=== PATIENT | male | born 1950 | race Caucasian/White ===

== ENCOUNTER 2019-05-16 08:26 | Day surgery (SDC) | payer OTHER, SELFPAY ==
--- NOTE | 2019-05-16 | PATH_ITS ---
[facility] Accession Number: [id number] . 01 Material submitted: . PART A: colon - COLON POLYP 20 CM PART B: colon - POLYP AT ANAL VERGE . 01 Clinical history: . ENCOUNTER FOR SCREENING FOR MALIGNANT NEOPLASM . 02 Diagnosis: A. Colon, Polyp At 20 CM, Biopsy: Tubular adenoma. . B. Colon, Anal Verge Polyp, Biopsy: Hyperplastic polyp. [facility] 05/17/2019 1343 Local . 02 Electronically signed: . Mary Beth Alcala MD, Pathologist NPI- [id number] . 01 Gross description: . Part A: COLON POLYP 20 CM: Received in formalin are 3 fragment(s) of quinteros, soft tissue measuring 0.1 x 0.1 x 0.1 cm to 0.4 x 0.2 x 0.2 cm which is entirely submitted and submitted entirely in 1 cassette(s) Part B: POLYP AT ANAL VERGE: Received in formalin are 2 fragment(s) of quinteros, soft tissue measuring 0.2 x 0.2 x 0.2 cm to 0.3 x 0.3 x 0.2 cm which is entirely submitted and submitted entirely in 1 cassette(s) /[facility] [place] 05/16/2019 2017 Local . 02 Pathologist provided ICD-10: D12.6 . 02 CPT . 452406, [id number] Performed at: 01 [facility] [address] [place] [address], [place], [place] [id number] MD Jorje Hennessy MD Phone: [phone] Performed at: 02 [facility] [address] [place], [place] [id number] MD Mary Beth Alcala MD Phone: [phone]
[2019-05-16 08:47] VITALS: BP 151/94; PULSE 60; RESP 15; TEMP 36.2; O2SAT 97; BMI 28.8
[2019-05-16] MEDS: SODIUM CHLORIDE 0.9% 1,000 ML 200 ML IV (09:09)
--- NOTE | 2019-05-16 09:31 | PM.HP.1 ---
History of Present Illness History of Present Illness Date Patient Seen: 05/16/19 Time Patient Seen: 09:31 Chief complaint: [id number] Narrative: The patient is gentleman here for a screening colonoscopy. Last exam was almost 10 years ago. No family history of colon cancer. Patient History Medical History Atrial fibrillation (Chronic) Pacemaker (Chronic) Surgical History (Updated 05/16/19 @ 09:33 by Yohan Harrison MD) H/O cardiac radiofrequency ablation (Acute) Hx of hernia repair (Resolved) Family History Mother Cancer Grandmother Cancer Social History marital status: household members: spouse occupational status: previously employed Smoking Status: Never smoker alcohol intake: current Family & Social History Social History: household members spouse Tobacco & Substance use: Smoking Status Never smoker alcohol intake current Meds Home Medications and Allergies Home Medications Medication Instructions Recorded Confirmed Type citalopram [Celexa] #0 07/03/12 01/04/19 History warfarin [Coumadin] #0 07/03/12 01/04/19 History Lipitor 05/16/19 History Allergies Allergy/AdvReac Type Severity Reaction Status Date / Time No Known Drug Allergies Allergy Verified 05/16/19 08:39 Review of Systems Review of Systems ROS Unobtainable: All systems reviewed & are unremarkable except as noted in HPI and below Cardiovascular Comments: Patient had a pacemaker when he was 1st diagnosed with AFib. He was then ablated because medication was not controlling his AFib. He is now cardiac pacemaker dependent. He however is in sinus rhythm apparently. Exam Vital Signs (past 8 hours): - 05/16/19 08:47 Temperature 97.1 F L Pulse Rate 60 Respiratory Rate 15 Blood Pressure 151/94 H Pulse Oximetry 97 Oxygen Delivery Method Room Air Narrative Exam Narrative: Pleasant cooperative patient no apparent distress. Lungs are clear to auscultation. No rales or rhonchi. Heart regular rate and rhythm no murmur gallop. Abdomen is soft nontender without mass. No obvious hernias. Patient is alert and oriented x3. Assessment & Plan Assessment & Plan narrative: The patient for a screening colonoscopy. I have discussed the procedure with them. Risks of bleeding, perforation which would necessitate major operation, failure to find remove all lesions, the potential tattoo were all discussed. All questions were answered. They wished to proceed.
--- NOTE | 2019-05-16 09:34 | PM.PREOP ---
Pre-operative Note Interval Note History & Physical reviewed/Exam performed by Physician: Yes Changes to H&P: No ASA Class (for procedural sedation): II
[2019-05-16] MEDS: MIDAZOLAM 5 MG/5 ML VIAL IV (10:22)
[2019-05-16] MEDS: fentaNYL 250 MCG/5 ML INJ IV (10:23)
--- NOTE | 2019-05-16 10:24 | PM.OP.ENDO ---
Operative Date/Time/Diagnoses Date of procedure: 05/16/19 Time of procedure: 10:25 Pre-op diagnosis: Screening for colon cancer. Last exam was almost 10 years ago Post-op diagnosis: same (Diverticulosis. Small polyp.) Procedure & Clinicians Study performed: Colonoscopy with cold biopsy Same procedure as scheduled: Yes Indications: Screening Surgeon: Yohan Harrison Procedure Notes SCOAP/Timeout: Performed Procedure in detail: The patient was placed in the left lateral decubitus position and underwent IV sedation directed by the surgeon consisting of fentanyl and Versed. Digital exam was unremarkable. I could not feel any mass in his prostate. The scope was inserted and advanced through the rectum into the sigmoid, descending, transverse, and ascending colon. The patient was noted to have some diverticulosis.. The cecum was reached identified by the ileocecal valve and the appendiceal opening. The scope was gradually brought out. Polyps were found at 20 cm and very small flat lesions in the anal area suggestive of lymphoid follicles. Several of these were biopsied to confirm that suspicion. The scope ultimately was retroflexed in the rectum. The appearance was normal. The scope was straightened there were some very small flat lesions which I biopsied not far inside the anus.. The scope was removed and the patient tolerated the procedure well. Prep was very good. Scope withdrawal time: 8 minutes(total 9.5) Sedation minutes: 25 Findings: diverticulosis and polyp Specimen(s): other (Polyps) Complications: none Post-procedure Recommendations: Colonscopy in 5 years (Unless these polyps are not neoplastic in which case 10 years would be more appropriate.) and High fiber diet (Eat a diet rich in vegetables and fruit) Follow up: as needed Disposition: PACU
[2019-05-16 10:28] VITALS: BP 122/69; PULSE 60; RESP 14; TEMP 37; O2SAT 95
[2019-05-16 10:34] VITALS: BP 119/71; PULSE 72; RESP 15; O2SAT 95
[2019-05-16 11:00] VITALS: BP 113/75; PULSE 60; RESP 15; TEMP 36.3; O2SAT 95
== END 2019-05-16 11:11 | disposition home or self-care (01) ==
PROVIDERS: PCP Internal Medicine; Visit Provider Specialist
PROC: 0DJD8ZZ Inspection of Lower Intestinal Tract, Via Natural or Artificial Opening Endoscopic (ICD-10-PCS; CPT 45378; principal; 2019-05-16 09:45)
DX: Z12.11 Encounter for screening for malignant neoplasm of colon (principal); I48.91 Unspecified atrial fibrillation; Z95.0 Presence of cardiac pacemaker; K57.30 Diverticulosis of large intestine without perforation or abscess without bleeding; D12.6 Benign neoplasm of colon, unspecified
CPT/HCPCS: 45380; 99152; J2250; J3010

== ENCOUNTER → 2019-10-12 09:09 | Outpatient (CLI) | payer OTHER, SELFPAY ==
[2019-10-12 09:51] LABS: Alanine Aminotransferase 32 IU/L (<50); Albumin 4.5 g/dL (3.5-5.0); Albumin Globulin Ratio 1.6 (1.0-2.8); Alkaline Phosphatase 92 U/L (38-126); Aspartate Aminotransferase 39 IU/L (17-59); BUN Creatinine Ratio 16.4 (6-22); Bilirubin Total 0.8 mg/dL (0.2-1.3); Blood Urea Nitrogen 18 mg/dL (9-20); Calcium 9.2 mg/dL (8.4-10.2); Carbon Dioxide 25 mmol/L (22-32); Chloride 107 mmol/L (98-107); Cholesterol 151 mg/dL (140-199); Estimated Glomerular Filt Rate > 60.0 mL/min (>60); Globulin 2.9 g/dL (1.7-4.1); Glucose 105 mg/dL (80-110); HDL Cholesterol 38 mg/dL (40-60); HEMOLYSIS < 15 (0-50); LDL Cholesterol Calculated 90 mg/dL (<100); Potassium 4.2 mmol/L (3.4-5.1); Sodium 142 mmol/L (137-145); Total Protein 7.4 g/dL (6.3-8.2); Triglycerides 116 mg/dL (35-150)
== END ==
PROVIDERS: PCP Internal Medicine; Referring Provider Internal Medicine; Visit Provider Internal Medicine
DX: I48.91 Unspecified atrial fibrillation (principal); G47.30 Sleep apnea, unspecified; E78.00 Pure hypercholesterolemia, unspecified
CPT/HCPCS: 36415; 80053; 80061

== ENCOUNTER → 2020-07-08 14:58 | Outpatient (ROUT) | payer OTHER, SELFPAY ==
[2020-07-08 15:10] LABS: INR 1.9 (0.9-1.3); Prothrombin Time 21.7 SECONDS (10.1-12.7)
== END ==
PROVIDERS: PCP Internal Medicine; Visit Provider Family Medicine
DX: I48.91 Unspecified atrial fibrillation (principal); F32.0 Major depressive disorder, single episode, mild; E78.5 Hyperlipidemia, unspecified; Z79.01 Long term (current) use of anticoagulants
CPT/HCPCS: 85610

== ENCOUNTER → 2020-09-24 11:20 | Outpatient (CLI) | payer MEDICARE, SELFPAY ==
[2020-09-24] MEDS: COVID-19 VACC #1, MRNA(MOD) 100 MCG/0.5 ML VIAL IM (11:25)
== END ==
PROVIDERS: PCP Internal Medicine; Visit Provider Internal Medicine
DX: Z23 Encounter for immunization (principal)
CPT/HCPCS: 0011A; 91301

== ENCOUNTER → 2020-10-22 12:09 | Outpatient (CLI) | payer MEDICARE, SELFPAY ==
[2020-10-22] MEDS: COVID-19 VACC #2, MRNA(MOD) 100 MCG/0.5 ML VIAL IM (12:15)
== END ==
PROVIDERS: PCP Internal Medicine; Visit Provider Internal Medicine
DX: Z23 Encounter for immunization (principal)
CPT/HCPCS: 0012A; 91301

== ENCOUNTER → 2021-04-09 10:45 | Outpatient (CLI) | payer OTHER, SELFPAY ==
[2021-04-09 12:20] LABS: COVID19 -Nasal RAPID Negative (Negative)
== END ==
PROVIDERS: PCP Internal Medicine; Visit Provider Student in an Organized Health Care Education/Training Program
DX: Z01.812 Encounter for preprocedural laboratory examination (principal); Z20.822 Contact with and (suspected) exposure to COVID-19
CPT/HCPCS: 87635; C9803

== ENCOUNTER → 2021-04-11 09:03 | Outpatient (CLI) | payer OTHER, SELFPAY ==
--- NOTE | 2021-04-11 19:53 | DI.NM.S_ITS ---
DATE OF SERVICE: 04/11/2021 PROCEDURE PERFORMED: Pharmacologic vasodilator stress and rest myocardial perfusion imaging with gating to assess ejection fraction and regional wall motion. ORDERING PROVIDER: OLIMPIA Thomas. INDICATIONS: The patient is a 70-year-old male with chronic atrial fibrillation, pacemaker, and apparent nonsustained ventricular tachycardia on device interrogation. CARDIAC STRESS: Per protocol, 0.4 mg of regadenoson was infused with a normal hemodynamic response and development of a headache, mild dyspnea, and chest fullness. His resting ECG shows atrial fibrillation with ventricular pacing at 60 bpm, which precludes assessment of the ST segments. With stress, there were no obvious changes or other arrhythmias. Per protocol, 25.4 millicuries of technetium-99m Myoview was infused and he was imaged 20 minutes later using a gated SPECT acquisition protocol. Earlier in the day while at rest, he was injected with 11.6 millicuries of technetium-99m Myoview and was imaged 30 minutes later, again using a gated SPECT acquisition protocol. FINDINGS: 1. Raw data: There is fairly good myocardial tracer uptake. He was able to lie prone but required his left arm at his side for the prone imaging, which can produce some attenuation artifact. His lung/heart ratio is normal at 0.40 with a normal TID ratio of 1.03. 2. Quantitated gated SPECT: Post-stress ejection fraction is estimated at 70% without any focal wall motion abnormality and specifically the anterior wall appears to have normal contractility. The resting ejection fraction is 72% with an end- diastolic volume of 125 mL. 3. Myocardial perfusion imaging: Post-stress supine images show a fairly normal perfusion pattern except for a mild perfusion defect in the mid portion of the LAD, extending slightly distally but sparing the distal anteroapex. While this would be in a pattern that could be consistent with chest wall attenuation, this defect persists on the prone images, suggesting that it likely reflects a true perfusion defect. The resting images show an identical perfusion pattern without any significant improvement in the anterior defect. IMPRESSION: 1. Probable abnormal myocardial perfusion study but with reduced specificity. 2. Mild fixed perfusion defect in the mid to distal anterior wall, but sparing the distal anteroapical segment. While this defect persists on the prone images, suggesting a probable previous nontransmural myocardial infarction without ischemia, its distribution with sparing of the anteroapex and the absence of any wall motion abnormality in this area, raises the question of possible attenuation artifact. Yet, there is no evidence for any myocardial ischemia by perfusion imaging. 3. Normal left ventricular systolic function without any focal wall motion abnormality. 4. Mild dyspnea, chest fullness, and headache with regadenoson infusion. His paced rhythm precludes any ST-segment analysis. Carin, Jevon - GRICELDA/jarvis/remingtno doc#: [id number]/job#: [id number] dd: 04/11/2021 17:20:00 dt: 04/11/2021 19:16:00 DICTATING MD/COPIES TO: Chris Lucio MD; OLIMPIA Thomas COPIES MNE: NOE;
== END ==
PROVIDERS: PCP Internal Medicine; Referring Provider Nurse Practitioner Family; Visit Provider Nurse Practitioner Family
DX: I47.2 Ventricular tachycardia (principal); I48.20 Chronic atrial fibrillation, unspecified; Z95.0 Presence of cardiac pacemaker
CPT/HCPCS: 78452; 93017; A9502; J2785

== ENCOUNTER → 2021-05-19 09:43 | Outpatient (CLI) | payer OTHER, SELFPAY ==
--- NOTE | 2021-05-19 | DI.RAD.S_ITS ---
PROCEDURE: XR SHOULDER LT MIN 2V INDICATIONS: LEFT SHOULDER PAIN TECHNIQUE: 3 views of the shoulder were acquired. COMPARISON: None. FINDINGS: Bones: No fractures or dislocations. No suspicious bony lesions. Visualized ribs appear intact. Moderate to severe acromioclavicular degenerative narrowing. Minimal glenohumeral narrowing. Soft tissues: No suspicious soft tissue calcifications. IMPRESSION: Moderate to severe acromioclavicular degenerative narrowing. Dictated by: Annmarie Morgan M.D. on 05/19/2021 at 11:26 Approved by: Annmarie Morgan M.D. on 05/19/2021 at 11:27
== END ==
PROVIDERS: PCP Family Medicine; Referring Provider Family Medicine; Visit Provider Family Medicine
DX: M25.512 Pain in left shoulder (principal)
CPT/HCPCS: 73030

== ENCOUNTER 2024-06-22 07:28 | Day surgery (SDC) | payer OTHER, SELFPAY ==
[2024-06-22 08:05] VITALS: BP 151/92; PULSE 84; RESP 12; TEMP 36.2; O2SAT 98
--- NOTE | 2024-06-22 08:29 | PM.HP.1 ---
History of Present Illness History of Present Illness Date Patient Seen: 06/22/24 Time Patient Seen: 08:30 Chief complaint: SDC Narrative: Jevon is a 73-year-old man who is due for colonoscopy. See prior office note for details. [facility] Medical History Pacemaker Atrial fibrillation Surgical History H/O cardiac radiofrequency ablation Hx of hernia repair Family History Mother Cancer Grandmother Cancer Social History marital status: household members: spouse occupational status: previously employed Smoking Status: Never smoker alcohol intake: current Meds Home Medications and Allergies Home Medications Medication Instructions Recorded Confirmed Type warfarin 3 mg tablet (Coumadin) ##0 07/03/12 04/03/24 History atorvastatin 10 mg PO 04/03/24 04/03/24 History citalopram 20 mg tablet (Celexa) 40 mg PO #0 tabs 04/03/24 04/03/24 History metoprolol succinate 50 mg 50 mg PO DAILY 04/03/24 06/22/24 History tablet,extended release 24 hr sodium,potassium,mag sulfates 17.5 See Rx Instructions PO .COMPLEX 06/19/24 Rx gram-3.13 gram-1.6 gram oral soln #354 mL (Suprep Bowel Prep Kit) Allergies Allergy/AdvReac Type Severity Reaction Status Date / Time shellfish derived AdvReac Unknown Vomiting Verified 06/22/24 08:01 Exam Vital Signs (past 8 hours): - 06/22/24 08:05 Temperature 97.2 F L Pulse Rate 84 Respiratory Rate 12 Blood Pressure 151/92 H Pulse Oximetry 98 Oxygen Delivery Method Room Air Oxygen Delivery Method Room Air Const General: No acute distress Resp Effort & Inspection: normal respiratory effort Assessment & Plan Assessment and plan (1) Change in bowel habits: Status: Acute Plan Colonoscopy Time-Based Coding :: [TOTAL MINUTES] spent with patient and on the chart (including review of chart, obtaining history, exam, reviewing outside data, placing orders, documenting exam and treatment plan, and counseling patient) on [DATE].
--- NOTE | 2024-06-22 09:11 | PM.OP.COLON ---
Operative Date/Time/Diagnoses Date of procedure: 06/22/24 Time of procedure: 09:11 Pre-op diagnosis: Colon cancer screening Post-op diagnosis: same Procedure & Clinicians Study performed: Colonoscopy Same procedure as scheduled: Yes Surgeon: Sebas Torres Procedure Notes Procedure in detail: Surgeon: Sebas Torres MD Anesthesia: Celeste RILEY Procedure: The patient was brought to the endoscopy suite, placed in left lateral decubitus position. The patient was connected to monitoring devices. A time-out was performed. Sedation was administered. Once the patient was adequately sedated, a digital rectal exam was performed and was normal. The scope was then inserted and advanced to the cecum where the appendiceal orifice was identified and photographed. The scope was then slowly withdrawn over greater than 6 minutes. The mucosa was thoroughly inspected. No abnormalities were identified. The scope was retroflexed in the rectum. The scope was straightened and removed. The patient was awakened and brought to recovery. Scope withdrawal time: 6 minutes Sedation time: 10 minutes EBL: 0 Findings: Normal colon Post-procedure Disposition: PACU
[2024-06-22 09:12] VITALS: BP 111/61; PULSE 64; RESP 16; TEMP 36.2; O2SAT 98
[2024-06-22 09:17] VITALS: BP 100/70; PULSE 64; RESP 16; O2SAT 98
[2024-06-22 09:20] VITALS: BP 111/61; PULSE 60; RESP 16; O2SAT 98
[2024-06-22 09:26] VITALS: BP 110/70; PULSE 65; RESP 16; TEMP 36.2; O2SAT 98
== END 2024-06-22 09:41 | disposition home or self-care (01) ==
PROVIDERS: PCP Family Medicine; Referring Provider Surgery; Visit Provider Surgery
PROC: 0DJD8ZZ Inspection of Lower Intestinal Tract, Via Natural or Artificial Opening Endoscopic (ICD-10-PCS; CPT 45378; principal; 2024-06-22 08:45)
DX: Z12.11 Encounter for screening for malignant neoplasm of colon (principal)
CPT/HCPCS: G0121; J2704

== ENCOUNTER → 2024-10-16 09:55 | Outpatient (CLI) | payer OTHER, SELFPAY ==
[2024-10-16 10:55] LABS: Add Manual Diff / Slide Review NO; Basophils Absolute Auto 0 /uL (0-100); Basophils Percent Auto 0.6 % (0-2); Eosinophils Absolute Auto 200 /uL (0-450); Eosinophils Percent Auto 2.5 % (2-4); Hemoglobin 14.7 g/dL (13.5-17.5); Lymphocytes Absolute Auto 1300 /uL (1100-4500); Lymphocytes Percent Auto 20.1 % (25-40); Mean Corpuscular HGB Conc 34.1 % (30-36); Mean Corpuscular Hemoglobin 34.8 PG (26-34); Monocytes Absolute Auto 600 /uL (0-900); Monocytes Percent Auto 8.8 % (3-14); Neutrophils Absolute Auto 4300 /uL (1500-7000); Platelet Count 200 X10^3/uL (150-400); Red Blood Cell Count 4.21 X10^6/uL (4.5-5.9); Red Cell Distribution Width 13.2 % (11.6-14.8); White Blood Cell Count 6.4 X10^3/uL (4.5-11.0)
[2024-10-16 11:27] LABS: Alanine Aminotransferase 27 IU/L (<50); Albumin 4.4 g/dL (3.5-5.0); Albumin Globulin Ratio 1.8 (1.0-2.8); Alkaline Phosphatase 77 U/L (38-126); Aspartate Aminotransferase 34 IU/L (17-59); Bilirubin Total 1.1 mg/dL (0.2-1.3); Blood Urea Nitrogen 15 mg/dL (9-20); Calcium 9.2 mg/dL (8.4-10.2); Carbon Dioxide 24 mmol/L (22-32); Chloride 109 mmol/L (98-107); Cholesterol 139 mg/dL (140-199); Estimated Glomerular Filt Rate > 60 mL/min (>60); Globulin 2.4 g/dL (1.7-4.1); Glucose 99 mg/dL (80-110); HDL Cholesterol 42 mg/dL (40-60); HEMOLYSIS < 15 (0-50); LDL Cholesterol Calculated 79 mg/dL (<100); Potassium 4.8 mmol/L (3.4-5.1); Sodium 140 mmol/L (137-145); Total Protein 6.8 g/dL (6.3-8.2); Triglycerides 89 mg/dL (35-150); VLDL Cholesterol Calculated 18 mg/dL (2-30)
[2024-10-16 11:46] LABS: Free T4, Direct Thyroxine 0.88 ng/dL (0.78-2.19)
[2024-10-16 12:00] LABS: Thyroid Stimulating Hormone 1.98 uIU/mL (0.47-4.68)
[2024-10-16 12:01] LABS: Prostate Specific Antigen 0.693 ng/mL (0.10-4.00)
== END ==
PROVIDERS: PCP Family Medicine; Referring Provider Family Medicine; Visit Provider Family Medicine
DX: E78.2 Mixed hyperlipidemia (principal); Z13.0 Encounter for screening for diseases of the blood and blood-forming organs and certain disorders involving the immune mechanism; Z13.29 Encounter for screening for other suspected endocrine disorder; I47.20 Ventricular tachycardia, unspecified; G47.33 Obstructive sleep apnea (adult) (pediatric); I42.9 Cardiomyopathy, unspecified; F32.0 Major depressive disorder, single episode, mild; I48.11 Longstanding persistent atrial fibrillation; Z79.01 Long term (current) use of anticoagulants
CPT/HCPCS: 36415; 80053; 80061; 84153; 84439; 84443; 85025

== ENCOUNTER → 2024-10-17 11:35 | Outpatient (CLI) | payer OTHER, SELFPAY ==
--- NOTE | 2024-10-17 11:36 | DI.RAD.S_ITS ---
PROCEDURE: XR LUMBAR SPINE 2-3V INDICATIONS: Low back pain, unspecified TECHNIQUE: 3 views of the lumbar spine were acquired. COMPARISON: None. FINDINGS: Bones: 5 [id number] vertebrae are present. Moderate L4-L5 and severe L5-S1 disc space loss noted. Chronic appearing anterior wedging deformities of L1, L2 and L4 have resulted in less than 25% anterior height loss. There is normal bony alignment. No vertebral body compression fractures. No suspicious bony lesions. Soft tissues: Overlying bowel gas pattern is normal. No suspicious soft tissue calcifications. Atherosclerotic vascular calcifications are noted. IMPRESSION: Multilevel spondylosis without evidence of acute osseous abnormality. Dictated by: Doyle Abebe M.D. on 10/17/2024 at 22:25 Approved by: Doyle Abebe M.D. on 10/17/2024 at 22:26
== END ==
PROVIDERS: PCP Family Medicine; Referring Provider Family Medicine; Visit Provider Family Medicine
DX: M54.50 Low back pain, unspecified (principal); M25.551 Pain in right hip; M47.816 Spondylosis without myelopathy or radiculopathy, lumbar region
CPT/HCPCS: 72100